=== PATIENT | female | born 1970 | race American Indian/Alaskan Native ===

== ENCOUNTER 2018-01-02 11:27 | Emergency (ER) | payer SELFPAY ==
[2018-01-02] MEDS ORDERED: ASPIRIN PO ONE (11:40)
[2018-01-02 12:49] LABS: Basophils % (Auto) 0.4 % (0.0-1.8); Eosinophils # (Auto) 0.2 K/mm3 (0.0-0.4); Eosinophils % (Auto) 2.2 % (0.0-4.3); Hemoglobin 14.1 gm/dl (10.1-14.3); Lymphocytes # (Auto) 2.6 K/mm3 (1.2-5.4); Lymphocytes % (Auto) 37.4 % (13.4-35.0); Mean Corpuscular HGB Conc 32 % (30-34); Mean Corpuscular Hemoglobin 27 pg (28-32); Mean Corpuscular Volume 84 fl (79-97); Monocytes # (Auto) 0.6 K/mm3 (0.0-0.8); Monocytes % (Auto) 8.7 % (0.0-7.3); Platelet Count 312 K/mm3 (140-440); Red Blood Count 5.27 M/mm3 (3.65-5.03); Red Cell Distribution Width 15.3 % (13.2-15.2)
[2018-01-02 13:10] LABS: BUN/Creatinine Ratio 11; Blood Urea Nitrogen 9 mg/dL (7-17); Calcium 9.1 mg/dL (8.4-10.2); Hemolysis Index 15
[2018-01-02] MEDS ORDERED: ASPIRIN ONE (15:15)
--- NOTE | 2018-01-02 16:11 | Emergency Department Report ---
ED General Adult HPI - General Chief complaint: Chest Pain Stated complaint: HEART RACING/HYPERTENSIVE Time Seen by Provider: 01/02/18 16:04 Source: patient Mode of arrival: Ambulatory Limitations: No Limitations - History of Present Illness Initial comments: Patient denied chest pain whatsoever today. She stated quite clearly that she has under a lot of stress related to her divorce. She felt like she "panicked" and that her heart was racing. She is completely asymptomatic at this time. She has never had chest pain here in the emergency department nor prior to arrival. She states that sometimes she has "tension in her neck". She does not currently complain of headache. She is essentially asymptomatic and desirous of discharge. She is not depressed and has no SI or HI. -: Gradual Consistency: now resolved Associated Symptoms: denies other symptoms, other (neck tension as above states on the left) Treatments Prior to Arrival: none - Related Data Previous Rx's Medication Instructions Recorded Last Taken Type amLODIPine [Norvasc] 5 mg PO DAILY #30 tab 03/07/15 06/28/15 09:00 Rx metFORMIN [Glucophage] 500 mg PO BID #60 tablet 02/16/16 Unknown Rx amLODIPine [Norvasc] 5 mg PO DAILY #30 tab 01/02/18 Unknown Rx traMADol [Ultram] 50 mg PO Q6HR PRN #10 tablet 01/02/18 Unknown Rx Allergies Allergy/AdvReac Type Severity Reaction Status Date / Time No Known Allergies Allergy Verified 06/22/15 07:53 ED Review of Systems ROS: Stated complaint: HEART RACING/HYPERTENSIVE Other details as noted in HPI Constitutional: denies: chills, fever Eyes: denies: eye pain, eye discharge, vision change ENT: denies: ear pain, throat pain Respiratory: denies: cough, shortness of breath, wheezing Cardiovascular: denies: chest pain, palpitations Endocrine: no symptoms reported Gastrointestinal: denies: abdominal pain, nausea, diarrhea Genitourinary: denies: urgency, dysuria, discharge Musculoskeletal: as per HPI. denies: back pain, joint swelling, arthralgia Skin: denies: rash, lesions Neurological: denies: headache, weakness, paresthesias Psychiatric: denies: anxiety, depression Hematological/Lymphatic: denies: easy bleeding, easy bruising ED Past Medical Hx - Past Medical History Hx Hypertension: Yes Hx Diabetes: Yes Additional medical history: Uterine fibroids, adenomyosis, breast lump in L breast - Surgical History Additional Surgical History: uterine artery embolization; lumpectomy - Social History Smoking Status: Current Every Day Smoker Substance Use Type: None - Medications Home Medications: Home Medications Medication Instructions Recorded Confirmed Last Taken Type amLODIPine [Norvasc] 5 mg PO DAILY #30 tab 03/07/15 02/16/16 06/28/15 09:00 Rx metFORMIN [Glucophage] 500 mg PO BID #60 tablet 02/16/16 Unknown Rx amLODIPine [Norvasc] 5 mg PO DAILY #30 tab 01/02/18 Unknown Rx traMADol [Ultram] 50 mg PO Q6HR PRN #10 tablet 01/02/18 Unknown Rx ED Physical Exam - General Limitations: No Limitations General appearance: alert, in no apparent distress - Head Head exam: Present: atraumatic, normocephalic - Eye Eye exam: Present: normal appearance. Absent: PERRL, EOMI, scleral icterus - ENT ENT exam: Present: mucous membranes moist - Neck Neck exam: Present: normal inspection - Respiratory Respiratory exam: Present: normal lung sounds bilaterally. Absent: respiratory distress - Cardiovascular Cardiovascular Exam: Present: regular rate, normal rhythm. Absent: systolic murmur, diastolic murmur, rubs, gallop - GI/Abdominal GI/Abdominal exam: Present: soft, normal bowel sounds. Absent: distended, tenderness, guarding, rebound, rigid - Extremities Exam Extremities exam: Present: normal inspection - Back Exam Back exam: Present: normal inspection - Neurological Exam Neurological exam: Present: alert, oriented X3, CN II-XII intact. Absent: motor sensory deficit - Psychiatric Psychiatric exam: Present: normal affect, normal mood - Skin Skin exam: Present: warm, dry, intact, normal color. Absent: rash ED Course Vital Signs 01/02/18 01/02/18 01/02/18 11:41 15:43 16:17 Temperature 99.1 F Pulse Rate 110 H 64 64 Respiratory 16 20 18 Rate Blood Pressure 200/124 Blood Pressure 171/95 165/109 [Right] O2 Sat by Pulse 100 98 100 Oximetry - Reevaluation(s) Reevaluation #1: Patient is asymptomatic 01/02/18 16:45 ED Medical Decision Making - Lab Data Result diagrams: 01/02/18 12:20 01/02/18 12:20 Laboratory Results - last 24 hr 01/02/18 01/02/18 01/02/18 12:20 12:20 14:20 WBC 6.8 RBC 5.27 H Hgb 14.1 Hct 44.0 H MCV 84 MCH 27 L MCHC 32 RDW 15.3 H Plt Count 312 Lymph % (Auto) 37.4 H Andrews % (Auto) 8.7 H Eos % (Auto) 2.2 Baso % (Auto) 0.4 Lymph # 2.6 Andrews # 0.6 Eos # 0.2 Baso # 0.0 Seg Neutrophils % 51.3 Seg Neutrophils # 3.5 Sodium 135 L Potassium 3.7 Chloride 98.5 Carbon Dioxide 22 Anion Gap 18 BUN 9 Creatinine 0.8 Estimated GFR > 60 BUN/Creatinine Ratio 11 Glucose 103 H Calcium 9.1 Troponin T < 0.010 < 0.010 - EKG Data -: EKG Interpreted by Me EKG shows normal: sinus rhythm, axis, intervals, QRS complexes, ST-T waves Rate: normal - EKG Data Interpretation: no acute changes Critical care attestation.: If time is entered above; I have spent that time in minutes in the direct care of this critically ill patient, excluding procedure time. ED Disposition Clinical Impression: Acute anxiety, Essential hypertension Disposition: DC-01 TO HOME OR SELFCARE Is pt being admited?: No Does the pt Need Aspirin: No Condition: Stable Instructions: Hypertension (ED), Anxiety (ED) Additional Instructions: Follow-up on your elevated blood pressure. See referrals. Prescriptions: amLODIPine [Norvasc] 5 mg PO DAILY #30 tab traMADol [Ultram] 50 mg PO Q6HR PRN #10 tablet PRN Reason: Pain Referrals: PRIMARY CARE [Primary Care Provider] - 3-5 Days [facility] [Provider Group] - 3-5 Days Time of Disposition: 16:49
[2018-01-02 16:18] VITALS: BP 165/109
== END 2018-01-02 17:07 | disposition home or self-care (01) ==
LOC: ED 11:27
DX: I10 Essential (primary) hypertension (principal); F41.9 Anxiety disorder, unspecified; E11.9 Type 2 diabetes mellitus without complications; F17.200 Nicotine dependence, unspecified, uncomplicated
CPT/HCPCS: 36415; 80048; 84484; 85025; 93005; 93010

== ENCOUNTER 2018-03-21 06:59 | Inpatient (IN) | payer SELFPAY ==
[2018-03-21] MEDS ORDERED: PEPCID IV ONE (07:30)
[2018-03-21] MEDS ORDERED: NACL 0.9% 1000 ML 1,000 ML IV ONE (07:30)
[2018-03-21] MEDS ORDERED: BENADRYL IV ONE (07:30)
--- NOTE | 2018-03-21 07:30 | Emergency Department Report ---
ED Allergic Reaction HPI - General Chief complaint: Allergic Reaction Stated complaint: ALLERGIC REACTION Time Seen by Provider: 03/21/18 07:29 Source: patient Mode of arrival: Ambulatory Limitations: No Limitations - History of Present Illness Initial Comments: Physician front office assistant will call this morning weight swelling. MD Complaint: allergic reaction -: Sudden Exposure: medication (Lisinopril) Symptoms: lip swelling Severity: severe Treatment Prior to Arrival: benadryl Previous Allergy History: angioedema - Related Data Home Medications Medication Instructions Recorded Confirmed Last Taken Aspirin [Aspirin TAB] 325 mg PO QDAY 03/21/18 03/21/18 Unknown Melatonin 5 mg PO HS 03/21/18 03/21/18 Unknown Allergies Allergy/AdvReac Type Severity Reaction Status Date / Time No Known Allergies Allergy Verified 06/22/15 07:53 ED Review of Systems ROS: Stated complaint: ALLERGIC REACTION Other details as noted in HPI Comment: All other systems reviewed and negative Constitutional: denies: chills, fever Eyes: denies: eye pain ENT: denies: ear pain Respiratory: denies: cough, orthopnea, shortness of breath Cardiovascular: denies: chest pain, palpitations, dyspnea on exertion Endocrine: no symptoms reported Gastrointestinal: denies: abdominal pain, nausea, vomiting, diarrhea Genitourinary: denies: urgency, dysuria, frequency Musculoskeletal: denies: back pain, joint swelling Skin: denies: rash, lesions Neurological: denies: headache, weakness Psychiatric: denies: anxiety, depression Hematological/Lymphatic: denies: easy bleeding, easy bruising ED Past Medical Hx - Past Medical History Previous Medical History?: Yes Hx Hypertension: Yes Hx Diabetes: Yes Additional medical history: Uterine fibroids, adenomyosis, breast lump in L breast - Surgical History Past Surgical History?: Yes Additional Surgical History: uterine artery embolization; lumpectomy - Social History Smoking Status: Never Smoker Substance Use Type: None - Medications Home Medications: Home Medications Medication Instructions Recorded Confirmed Last Taken Type Aspirin [Aspirin TAB] 325 mg PO QDAY 03/21/18 03/21/18 Unknown History Melatonin 5 mg PO HS 03/21/18 03/21/18 Unknown History ED Physical Exam - General Limitations: No Limitations General appearance: alert, in no apparent distress - Head Head exam: Present: atraumatic, normocephalic, normal inspection - Eye Eye exam: Present: normal appearance, PERRL, EOMI Pupils: Present: normal accommodation - ENT ENT exam: Present: normal orophraynx, other (Lip Swelling both upper and lower.) - Neck Neck exam: Present: normal inspection, full ROM. Absent: tenderness - Respiratory Respiratory exam: Present: normal lung sounds bilaterally. Absent: respiratory distress, wheezes, rales, rhonchi - Cardiovascular Cardiovascular Exam: Present: regular rate, normal rhythm, normal heart sounds - GI/Abdominal GI/Abdominal exam: Present: soft, normal bowel sounds. Absent: distended, tenderness, guarding, rebound - Extremities Exam Extremities exam: Present: normal inspection, full ROM, normal capillary refill - Back Exam Back exam: Present: normal inspection, full ROM - Neurological Exam Neurological exam: Present: alert, oriented X3, CN II-XII intact - Psychiatric Psychiatric exam: Present: normal affect, normal mood - Skin Skin exam: Present: warm, dry, intact, normal color ED Course Vital Signs 03/21/18 03/21/18 03/21/18 07:04 07:15 07:30 Temperature 98.6 F Pulse Rate 82 64 Respiratory 16 16 16 Rate Blood Pressure 161/97 Blood Pressure 144/80 [Left] O2 Sat by Pulse 100 100 100 Oximetry 03/21/18 03/21/18 09:15 11:18 Temperature Pulse Rate 74 76 Respiratory 16 16 Rate Blood Pressure Blood Pressure 143/74 144/79 [Left] O2 Sat by Pulse 98 99 Oximetry - Reevaluation(s) Reevaluation #1: 03/21/18 13:50 I discussed patient care were done some call Dr. De La Vega. He will admit patient to hospital for further evaluation and management. ED Medical Decision Making - Lab Data Result diagrams: 03/21/18 07:38 03/21/18 07:38 - Radiology Data Radiology results: report reviewed - Medical Decision Making Angioedema. Critical care attestation.: If time is entered above; I have spent that time in minutes in the direct care of this critically ill patient, excluding procedure time. ED Disposition Clinical Impression: Angioedema of lips Qualifiers: Encounter type: initial encounter Qualified Code(s): T78.3XXA - Angioneurotic edema, initial encounter Disposition: OP ADMIT IP TO THIS HOSP Is pt being admited?: Yes Does the pt Need Aspirin: No Condition: Stable Time of Disposition: 10:30
[2018-03-21 07:48] LABS: Basophils % (Auto) 0.7 % (0.0-1.8); Eosinophils # (Auto) 0.3 K/mm3 (0.0-0.4); Eosinophils % (Auto) 4.8 % (0.0-4.3); Hematocrit 40.8 % (30.3-42.9); Hemoglobin 13.6 gm/dl (10.1-14.3); Lymphocytes # (Auto) 1.8 K/mm3 (1.2-5.4); Lymphocytes % (Auto) 27.5 % (13.4-35.0); Mean Corpuscular HGB Conc 33 % (30-34); Mean Corpuscular Hemoglobin 28 pg (28-32); Mean Corpuscular Volume 84 fl (79-97); Monocytes # (Auto) 0.5 K/mm3 (0.0-0.8); Monocytes % (Auto) 7.9 % (0.0-7.3); Platelet Count 328 K/mm3 (140-440); Red Blood Count 4.84 M/mm3 (3.65-5.03); Red Cell Distribution Width 14.7 % (13.2-15.2)
[2018-03-21 08:04] LABS: Albumin 3.6 g/dL (3.9-5); BUN/Creatinine Ratio 20; Blood Urea Nitrogen 16 mg/dL (7-17); Calcium 9.2 mg/dL (8.4-10.2); Hemolysis Index 10
[2018-03-21 08:30] LABS: Alanine Aminotransferase < 5 units/L (7-56)
--- NOTE | 2018-03-21 15:10 | History and Physical Report ---
History of Present Illness Date of examination: 03/21/18 Date of admission: 03/21/18 10:55 Chief complaint: lip and tongue swelling since yesterday after taking lisinopril History of present illness: 47-year-old obese -[place] female patient with significant past medical history of hypertension recently took her lisinopril when she suddenly developed facial swelling and lip and throat swelling with mild shortness of breath On evaluation in the emergency room, patient did not have any respiratory compromise, saturating well on room air Patient received IV steroids and IV Benadryl with mild improvement Patient denies any chest pain or shortness of breath Denies headache dizziness Past History Past Medical History: diabetes, hypertension, hyperlipidemia, other (fibroid uterus) Past Surgical History: Other (breast lumpectomy). denies: thyroidectomy Social history: lives with family, full code. denies: smoking, alcohol abuse, prescription drug abuse Family history: hypertension Medications and Allergies Allergies Allergy/AdvReac Type Severity Reaction Status Date / Time No Known Allergies Allergy Verified 06/22/15 07:53 Home Medications Medication Instructions Recorded Confirmed Last Taken Type Aspirin [Aspirin TAB] 325 mg PO QDAY 03/21/18 03/21/18 Unknown History Melatonin 5 mg PO HS 03/21/18 03/21/18 Unknown History Active Meds: Active Medications Aspirin (Aspirin) 325 mg PO QDAY GEETHA Review of Systems Constitutional: no weight loss, no weight gain, no anorexia, no fatigue Ears, nose, mouth and throat: other (angioedema), no nasal congestion, no nasal discharge Cardiovascular: no chest pain, no orthopnea, no shortness of breath Respiratory: no cough with sputum, no hemoptysis Gastrointestinal: no abdominal pain, no nausea, no vomiting Genitourinary Female: no pelvic pain, no flank pain Musculoskeletal: no myalgias, no arthritis Integumentary: no rash, no lesions Neurological: no paralysis, no weakness, no parathesias Psychiatric: no anxiety, no depression Endocrine: no cold intolerance, no heat intolerance, no polydipsia, no polyuria Hematologic/Lymphatic: no easy bruising, no easy bleeding Allergic/Immunologic: angioedema, other (allergic reaction) Exam - Constitutional Vitals: Temp Pulse Resp BP Pulse Ox 98.6 F 76 16 144/79 99 03/21/18 07:04 03/21/18 11:18 03/21/18 11:18 03/21/18 11:18 03/21/18 11:18 General appearance: Present: mild distress, well-nourished, other (angioedema) - EENT Eyes: Present: PERRL, EOM intact - Neck Neck: Present: supple, normal ROM - Respiratory Respiratory effort: normal Respiratory: bilateral: diminished, negative: rales, rhonchi, wheezing - Cardiovascular Rhythm: regular Heart Sounds: Present: S1 & S2 - Extremities Extremities: no ischemia, No edema - Abdominal General gastrointestinal: Present: soft, non-tender, non-distended - Integumentary Integumentary: Present: clear, warm - Musculoskeletal Musculoskeletal: strength equal bilaterally - Psychiatric Psychiatric: appropriate mood/affect, cooperative - Neurologic Neurologic: CNII-XII intact, moves all extremities Results - Labs CBC & Chem 7: 03/21/18 07:38 03/21/18 07:38 Labs: Abnormal lab results 03/21/18 03/21/18 Range/Units 07:38 07:38 [place] % (Auto) 7.9 H (0.0-7.3) % Eos % (Auto) 4.8 H (0.0-4.3) % Glucose 121 H (65-100) mg/dL ALT < 5 L (7-56) units/L Albumin 3.6 L (3.9-5) g/dL Assessment and Plan --Angioedema; secondary to histoplasmosis Erica, IV steroids, IV antihistamines, supportive care --Allergic reaction; probably secondary to lisinopril, hold lisinopril, histamines, supportive care --Obesity; BMI 33.4 Colon screening done, advised diet modification and exercise as tolerated based duction, When medically stable --DVT prophylaxis; Lovenox closely monitor the patient and adjust management as needed
[2018-03-21] MEDS ORDERED: BENADRYL IV PRN (15:11)
[2018-03-21] MEDS ORDERED: PERCOCET 5/325 PO PRN (15:15)
[2018-03-21] MEDS ORDERED: HABITROL TD ONE (21:58)
[2018-03-21] MEDS: PEPCID PO SCH (22:20)
[2018-03-22] MEDS ORDERED: ASPIRIN PO SCH (10:00)
[2018-03-22] MEDS: PEPCID PO SCH (11:38)
--- NOTE | 2018-03-22 14:00 | Discharge Summary ---
Providers - Providers Date of Admission: 03/21/18 10:55 Date of discharge: 03/22/18 Attending physician: MARVIN VICENTE Primary care physician: DOFFER Hospitalization Reason for admission: angioedema due to lisinopril use Condition: Stable Hospital course: Very pleasant 47-year-old obese -[place] female patient with significant history of hypertension dyslipidemia fibroid uterus was admitted through emergency room with angioedema secondary to lisinopril. Patient developed sudden swelling of the lip and tongue without respiratory compromise and some itching Patient was evaluated for admitted to the hospital Lisinopril was held, started on high-dose IV steroids and IV antihistamines Patient was closely monitored for any evidence of hypoxia stridor or difficulty breathing Symptomatically managed, Symptoms significantly improved today she is comfortable with no new complaints Lip swelling improved, tongue swelling completely resolved Patient is comfortable, saturating 98% on room air Physical examination lip very minimal swelling, oral cavity within normal limits Lungs no stridor and no wheeze no rhonchi Patient is hemodynamically and clinically stable for discharge today Patient strongly advised not to take DILMA inhibitors or DILMA inhibitor-related medications as she is allergic to this group of meds Patient also advised diet modification and exercise as tolerated and weight reduction when stable Patient verbalized understanding Discharge diagnosis; --Angioedema secondary to lisinopril; resolved --Hypertension; well controlled --Obesity; BMI 33.7; counseling weight reduction Disposition: DC-01 TO HOME OR SELFCARE Time spent for discharge: 31 min Core Measure Documentation - Palliative Care Palliative Care/ Comfort Measures: Not Applicable - Core Measures Any of the following diagnoses?: none Exam - Constitutional Vitals: Temp Pulse Resp BP Pulse Ox 98.9 F 64 20 151/91 97 03/22/18 08:05 03/22/18 08:05 03/22/18 08:05 03/22/18 08:05 03/22/18 08:05 General appearance: Present: no acute distress, well-nourished - EENT Eyes: Present: PERRL, EOM intact - Neck Neck: Present: supple, normal ROM - Respiratory Respiratory effort: normal Respiratory: negative: rales, rhonchi, wheezing - Cardiovascular Rhythm: regular Heart Sounds: Present: S1 & S2 - Extremities Extremities: no ischemia, No edema - Abdominal General gastrointestinal: Present: soft, non-tender, non-distended, normal bowel sounds - Integumentary Integumentary: Present: clear, warm - Musculoskeletal Musculoskeletal: strength equal bilaterally - Psychiatric Psychiatric: appropriate mood/affect, cooperative - Neurologic Neurologic: CNII-XII intact, moves all extremities Plan Activity: no restrictions Diet: regular Additional Instructions: Did not take lisinopril/DILMA inhibitor group of medications as you're allergic to lisinopril. Exercise as tolerated and weight reduction and stable Follow up with: PRIMARY CARE, [Primary Care Provider] - 3-5 Days Prescriptions: diphenhydrAMINE [Benadryl CAP] 25 mg PO Q8HR PRN #15 capsule PRN Reason: Itching Famotidine [Pepcid] 20 mg PO BID #20 tablet Hydrochlorothiazide [Hctz] 12.5 mg PO QDAY #30 capsule predniSONE [Deltasone] 10 mg PO .TAPER #10 tab
[2018-03-22 15:53] VITALS: BP 160/94
== END 2018-03-22 16:00 | disposition home or self-care (01) | DRG 916 ==
LOC: ED 06:59 → 3A 10:55
PROVIDERS: ADMIT Internal Medicine; ATTEND Internal Medicine
DX: T78.3XXA Angioneurotic edema, initial encounter (principal); I10 Essential (primary) hypertension; E11.9 Type 2 diabetes mellitus without complications; E66.9 Obesity, unspecified; E78.5 Hyperlipidemia, unspecified; B39.9 Histoplasmosis, unspecified; T46.4X5A Adverse effect of angiotensin-converting-enzyme inhibitors, initial encounter; Y92.89 Other specified places as the place of occurrence of the external cause; Z79.82 Long term (current) use of aspirin; Z68.33 Body mass index [BMI] 33.0-33.9, adult
CPT/HCPCS: 36415; 80053; 85025; 99406; J1200; J2920; J2930; J7030